=== PATIENT | female | born 1965 | race Caucasian/White ===

== ENCOUNTER 2024-08-29 08:49 | Outpatient (CLI) | payer BC, SELFPAY ==
--- NOTE | 2024-08-29 08:54 | MM_ITS ---
WS: [id number] VIEWS: MLO and CC views both breasts. 3D digital tomosynthesis is also included in this exam. Comparison made with prior exam of 10/27/2007, 10/10/2009, 11/09/2010, 04/07/2012, 06/18/2013, 08/16/2014, 09/03/2015, 09/06/2016,. Findings: There are scattered areas of fibroglandular density. No suspicious mass, tumor calcification or architectural distortion. Stable appearing nodular density seen in the upper outer quadrant of the LEFT breast. MM/MM scr BI tomosynthesis [id number] Impression: BI-RADS: 2 - Benign FOLLOW-UP: 1 Year Follow-up This mammogram was also analyzed by the Computer Aided Detection System R2 Imag e Loan Underwriter.
== END 2024-08-29 08:50 | disposition home or self-care (01) ==
LOC: RAD 08:50
PROVIDERS: Family Provider Family Medicine; PCP Family Medicine; Visit Provider Family Medicine
DX: Z12.31 Encounter for screening mammogram for malignant neoplasm of breast (principal); R92.323 Mammographic fibroglandular density, bilateral breasts; N63.21 Unspecified lump in the left breast, upper outer quadrant
CPT/HCPCS: 77063; 77067

== ENCOUNTER 2024-09-12 08:42 | Outpatient (CLI) | payer BC, SELFPAY ==
--- NOTE | 2024-09-12 08:47 | US_ITS ---
WS: [id number] US pelv w/transvag [id number] HISTORY: WELL WOMAN EXAM COMPARISON: None available. Uterus: 7.6 cm x 3.9 cm x 3.2 cm. Poorly visualized uterus due to body habitus and position of the uterus. Endometrium: 1.1 cm. Globular thickened endometrium. Endometrium is abnormal for postmenopausal patie nt with bleeding. Neither ovary is identified. Adnexa are poorly visualized. No free fluid. US/US pelv w/transvag [id number] IMPRESSION: 1. Technically difficult evaluation of the uterus and endometrium. 2. Thickened globular endometrium at 1.1 cm. Abnormal endometrium for a postme nopausal patient with bleeding. Recommend evaluation by AVIATION SURVIVAL TECHNICIAN for biopsy. 3. Neither ovary identified.
== END 2024-09-12 08:43 | disposition home or self-care (01) ==
PROVIDERS: Family Provider Family Medicine; PCP Family Medicine; Visit Provider Family Medicine
DX: Z01.419 Encounter for gynecological examination (general) (routine) without abnormal findings (principal); N85.00 Endometrial hyperplasia, unspecified
CPT/HCPCS: 76830; 76856

== ENCOUNTER 2024-12-17 10:30 | Day surgery (SDC) | payer BC, SELFPAY ==
[2024-12-10 10:20] LABS: Basophils % 0.4 %; Eosinophils # 0.2 10^3/uL (0.0-0.8); Eosinophils % 2.4 %; Hematocrit 42.4 % (36-47); Lymphocytes % 25.7 %; Mean Corpuscular HGB Conc 31.1 g/dL (30-55); Mean Corpuscular Volume 83.6 fl (85-98); Mean Platelet Volume 10.1 fL (7.4-10.4); Monocytes # 0.6 10^3/uL (0.2-0.9); Monocytes % 7.9 %; Neutrophils # 4.98 10^3/uL (1.8-7.7); Neutrophils % 63.1 %; Nucleated Red Blood Cells % 0 %; Platelet Count 326 10^3/cmm (157-399); Red Blood Count 5.07 10^6/uL (3.85-5.65); Red Cell Distribution Width 13.2 % (12.1-15.1); White Blood Count 7.89 10^3/uL (3.29-11.43)
--- NOTE | 2024-12-10 10:21 | ANES.PREANE2 ---
Pre-Anesthetic Assessment Height/Weight: Height 1.68 m Operation Date: 12/17/24 12:10 Proposed Procedures p Hysteroscopy w/ Myosure 68005, 75026, N95.0(Not Applicable) - Anthony Parmar MD s Dilation And Curettage (D&C)(Not Applicable) - Anthony Parmar MD Familial anesthetic complications: None Was Beta Katlin taken within 24 hours: N/A Was Clonidine taken within 24 hours: N/A Social No alcohol and No tobacco Exam alert, oriented x 3, clear to auscultation bilaterally and regular rate & rhythm Airway Mallampati: Class IV Dentition: other (missing) CV/HEM Hypertension Metabolic Diabetes Mellitus (hx gestational DM) and Morbid Obesity Anesthetic Plan ASA status: 3 Anesthesia: General Risk of > 500 ml blood loss (7ml/kg in children): No Medications/Allergies Home Medications Medication Instructions Recorded Confirmed Last Taken Type losartan 25 mg tablet 25 mg PO DAILY 09/10/24 12/10/24 12/10/24 History Allergies Allergy/AdvReac Type Severity Reaction Status Date / Time No Known Allergies Allergy Verified 12/10/24 07:39 [facility] Anesthesia Family History Mother Breast cancer Grandfather Hypertension Hyperlipidemia Grandfather Stroke Grandmother Hypertension Diabetes Hyperlipidemia Social History Smoking and tobacco/nicotine status: never used tobacco/nicotine Data Anesthesia 12/10/24 10:08 12/10/24 10:08 Short CBC 12/10/24 Range/Units 10:08 WBC 7.89 (3.29-11.43) 10^3/uL Hgb 13.20 (11.27-16.99) g/dL Hct 42.4 (36-47) % MCV 83.6 L (85-98) fl Plt Count 326 (157-399) 10^3/cmm Neut % (Auto) 63.1 % Neut # (Auto) 4.98 (1.8-7.7) 10^3/uL Cardiac Studies: No Data to Display
[2024-12-10 10:23] LABS: Bilirubin Urine Negative (Negative); Blood Urine 1+ (Negative); Glucose Urine UA Negative (Normal); Ketones Urine Negative (Negative); Leukocyte Esterase Urine Negative (Negative); Nitrate Urine Negative (Negative); Protein Urine Negative (Negative); Urine Appearance Clear (CLEAR); Urine Color Yellow (Yellow); Urobilinogen Urine 0.2 mg/dL (Negative); pH Urine 5.5 (5-7)
[2024-12-10 10:26] LABS: Add Urine Microscopic? YES; Bacteria Urine Trace /hpf; Hyaline Casts Urine 3.71 /lpf; WBC Urine 0-5 /hpf (0-5)
[2024-12-10 10:36] LABS: Alanine Aminotransferase 6 U/L (0-33); Albumin Level 3.5 g/dL (3.5-5.2); Alkaline Phosphatase 80 U/L (35-105); Anion Gap 13.8 (5-19); Aspartate Amino Transferase 12 U/L (0-32); Blood Urea Nitrogen 11 mg/dL (8-23); Calcium 8.4 mg/dL (8.5-10.5); Carbon Dioxide 27 mmol/L (22-29); Chloride 102 mmol/L (98-107); Globulin 2.9 g/dL (1.3-4.6); Glomerular Filtration Rate 85.1 mL/min (90-130); Glucose 96 mg/dL (65-115); Osmolality Calculated 287 mOsm/kg (285-295); Potassium 3.8 mmol/L (3.5-5.1); Sodium 139 mmol/L (136-145); Total Bilirubin 0.3 mg/dL (0.15-1.2); Total Protein 6.4 g/dL (6.6-8.7)
[2024-12-17] VITALS (11 sets, daily range): BP systolic 130–189; BP diastolic 81–99; PULSE 69–91; RESP 12–20; TEMP 36.1–36.6; O2SAT 96–100; BMI 51.6
[2024-12-17] MEDS: sodium chloride 0.9% 1,000 ML 30 ML IV (11:00)
--- NOTE | 2024-12-17 12:27 | P.ANESUD_ITS ---
Pre-Anesthetic Update Pre-Anesthetic Assessment: Date of Surgery/Procedure: 12/17/24 Preop Courtney gnosis: postmenopausal bleeding Proposed Procedure: Operation Date: 12/17/24 12:00 Proposed Procedures p Hysteroscopy w/ Myosure 64931, 63542, N95.0(Not Applicable) - Anthony Parmar MD s Dilation And Curettage (D&C)(Not Applicable) - Anthony Parmar MD Changes from Pre-Anesthetic Assessment: No changes in today's since patient was seen in preanesthetic visit last week. Plan for general anesthesia. NPO since yesterday. ASA 3 Last Intake: Intake Last Liquid Date 12/16/24 Last Liquid Time 21:00 Last Solid Date 12/16/24 Last Solid Time 21:00 Vitals: Temperature 97 F L 12/17/24 10:42 Temperature Source Temporal Artery S can 12/17/24 10:42 Pulse Rate 79 12/17/24 11:37 Respiratory Rate 20 H 12/17/24 11:37 Blood Pressure 189/96 12/17/24 11:37 Blood Pressure Hannah n 127 12/17/24 11:37 Pulse Oximetry 96 12/17/24 11:37 Oxygen Delivery Me thod Room Air 12/17/24 11:37 Cardiac Studies: No Data to Display
--- NOTE | 2024-12-17 12:45 | W.PM.OPSUD ---
Surgery/Procedure H&P Update DATE OF PROCEDURE: December 17, 2024 DATE H&P PERFORMED: 12/10/24 H&P UPDATE INFORMATION: I have reviewed H&P completed within last 30 days, I have examined patient prior to procedure and No changes to prior documentation PREOP DIAGNOSIS: postmenopausal bleeding PLANNED PROCEDURE: Operation Date: 12/17/24 12:00 Proposed Procedures p Hysteroscopy w/ Myosure 25781, 78779, N95.0(Not Applicable) - Anthony Parmar MD s Dilation And Curettage (D&C)(Not Applicable) - Anthony Parmar MD
[2024-12-17] MEDS: ceFAZolin 3,000 MG in sodium chloride 0.9% (100 ml) 100 ML 200 MG IV (12:57)
[2024-12-17] MEDS: lidocaine-epi 2% PF 1:200,000 20 mL SDV XX (13:40)
--- NOTE | 2024-12-17 14:31 | ANE.PACU2 ---
Inpatient post-anesthesia follow up: Airway intact: Yes Vital signs: Temperature 97.6 F Pulse Rate 75 Respiratory Rate 18 Blood Pressure 171/81 Pulse Oximetry 99 Oxygen Delivery Me thod Room Air Oxygen Flow Rate Fraction of Inspir ed Oxygen Hydration adequate: Yes Nausea and vomiting: No Pain level: 1 Mental status: Baseline
--- NOTE | 2024-12-17 14:39 | PM.OP ---
Operative Report Date of procedure: December 17, 2024 Pre-op diagnosis: Postmenopausal bleeding Post-op diagnosis: same Procedure done: Hysteroscopy endometrial polypectomy via MyoSure Specimens removed/disposition: Endometrial polyp Surgeon: Anthony Parmar MD Estimated blood loss (mL): 5 IV fluids (mL): 700 Complications: None Procedure: After informed consent, the risks included but were not limited to bleeding, infection, injury to internal organs. The patient was counseled on a possible laparotomy and on the potential need for hysterectomy. The patient expressed understanding of the risks involved, all questions were answered, and the patient consented to the procedure. The patient was taken to the operating room where general anesthesia was administered. She was placed in the dorsal lithotomy position and prepped and draped in sterile fashion. A time out procedure was performed. The patient was examined under anesthesia and found to have a normal uterus with normal adnexa. A sterile weight speculum was placed in the vagina. The uterus was then gently sounded to 9 cm, and the cervix was dilated. The 0 degrees MyoSure hysteroscope was advanced gently to the uterine fundus while visualizing the monitor. Survey of the uterine cavity showed: Pedicle of the pedunculated myoma on the right lateral wall, the fundus shows normal atrophic endometrium; left ostium was visualized, and lateral wall with atrophic endometrium; right ostium visualized, and lateral wall with atrophic endometrium; anterior and posterior lin are with atrophic endometrium; endocervical canal is normal. The MyoSure device was advanced and the direct visualization the polyp was morcellated without complication. At the end of morcellation the fluid deficit was 465 mL and was estimated at approximately 400 mL were on the floor. There was minimal bleeding noted and the tenaculum removed with goad hemostasis noted. The patient tolerated the procedure well. The patient was taken to the recovery area in stable condition.
--- NOTE | 2024-12-17 14:46 | P.DS_ITS ---
Discharge Providers FOOD SAMPLER Date of Discharge: 12/17/24 Attending Provider at Discharge: Anthony Parmar MD Primary Care Provider: Malathi Graff MD Hospital Course Hospital Course Mrs. Bolden is a 62-year-old female with history of postmenopausal bleeding and endometrial polyp on ultrasound. Admitted for hysteroscopy and dilation with curettage via MyoSure. During hysteroscopy distinct polyp was noted and endometrial polypectomy was performed with the MyoSure device without complications. She was counseled regarding pelvic rest for 6 weeks (no sex, no tampons, no vaginal douches). Return to the emergency room if any fever, increased bleeding or pain. And instructed to follow-up in 2 weeks Physical Exam Narrative: GA: Alert and oriented ?3. HEENT: WNL. Heart: Regular rate and rhythm. Lungs: Clear to auscultation bilaterally. Abdomen: Bowel sounds present, nontender. PLASTERER SPRAY GUN: spotting bleeding. Extremities: No edema, no cyanosis, no calves pain. Discharge Data Studies Completed and Pending Pending at discharge Category Date Time Status Type and Screen Routine Lab 12/10/24 09:42 Uncollected Pathology: Surgical [PTH] Routine Pth 12/17/24 14:05 Ordered Laboratory Results WBC 7.89 10^3/uL (3.29-11.43) 12/10/24 10:08 RBC 5.07 10^6/uL (3.85-5.65) 12/10/24 10:08 Hgb 13.20 g/dL (11.27-16.99) 12/10/24 10:08 Hct 42.4 % (36-47) 12/10/24 10:08 MCV 83.6 fl (85-98) L 12/10/24 10:08 MCH 26.0 pg (27-33) L 12/10/24 10:08 MCHC 31.1 g/dL (30-55) 12/10/24 10:08 RDW 13.2 % (12.1-15.1) 12/10/24 10:08 Plt Count 326 10^3/cmm (157-399) 12/10/24 10:08 MPV 10.1 fL (7.4-10.4) 12/10/24 10:08 Neut % (Auto) 63.1 % 12/10/24 10:08 Lymph % (Auto) 25.7 % 12/10/24 10:08 [place] % (Auto) 7.9 % 12/10/24 10:08 Eos % (Auto) 2.4 % 12/10/24 10:08 Baso % (Auto) 0.4 % 12/10/24 10:08 Neut # (Auto) 4.98 10^3/uL (1.8-7.7) 12/10/24 10:08 Lymph # (Auto) 2.0 10^3/uL (0.8-4.8) 12/10/24 10:08 [place] # (Auto) 0.6 10^3/uL (0.2-0.9) 12/10/24 10:08 Eos # (Auto) 0.2 10^3/uL (0.0-0.8) 12/10/24 10:08 Baso # (Auto) 0.0 10^3/uL (0.0-0.1) 12/10/24 10:08 Nucleated RBC % (auto) 0 % 12/10/24 10:08 Nucleated RBCs # 0.0 /100WBC 12/10/24 10:08 Sodium 139 mmol/L (136-145) 12/10/24 10:08 Potassium 3.8 mmol/L (3.5-5.1) 12/10/24 10:08 Chloride 102 mmol/L (98-107) 12/10/24 10:08 Carbon Dioxide 27 mmol/L (22-29) 12/10/24 10:08 Anion Gap 13.8 (5-19) 12/10/24 10:08 BUN 11 mg/dL (8-23) 12/10/24 10:08 Creatinine 0.7 mg/dL (0.5-0.9) 12/10/24 10:08 GFR Calculation 85.1 mL/min (90-130) L 12/10/24 10:08 Glucose 96 mg/dL (65-115) 12/10/24 10:08 Calculated Osmolality 287 mOsm/kg (285-295) 12/10/24 10:08 Calcium 8.4 mg/dL (8.5-10.5) L 12/10/24 10:08 Total Bilirubin 0.3 mg/dL (0.15-1.2) 12/10/24 10:08 AST 12 U/L (0-32) 12/10/24 10:08 ALT 6 U/L (0-33) 12/10/24 10:08 Alkaline Phosphatase 80 U/L (35-105) 12/10/24 10:08 Total Protein 6.4 g/dL (6.6-8.7) L 12/10/24 10:08 Albumin 3.5 g/dL (3.5-5.2) 12/10/24 10:08 Globulin 2.9 g/dL (1.3-4.6) 12/10/24 10:08 Urine Color Yellow (Yellow) 12/10/24 10:11 Urine Appearance Clear (CLEAR) 12/10/24 10:11 Urine pH 5.5 (5-7) 12/10/24 10:11 Ur Specific [place] 1.020 (1.005-1.030) 12/10/24 10:11 Urine Protein Negative (Negative) 12/10/24 10:11 Urine Glucose (UA) Negative (Normal) 12/10/24 10:11 Urine Ketones Negative (Negative) 12/10/24 10:11 Urine Blood 1+ (Negative) A 12/10/24 10:11 Urine Nitrate Negative (Negative) 12/10/24 10:11 Urine Bilirubin Negative (Negative) 12/10/24 10:11 Urine Urobilinogen 0.2 mg/dL (Negative) 12/10/24 10:11 Ur Leukocyte Esterase Negative (Negative) 12/10/24 10:11 Urine RBC 6-10 /hpf (0-2) 12/10/24 10:11 Urine WBC 0-5 /hpf (0-5) 12/10/24 10:11 Ur Squamous Epith Cells 6-10 /hpf (0-5) 12/10/24 10:11 Amorphous Sediment Not Reportable 12/10/24 10:11 Urine Bacteria Trace /hpf (NONE) 12/10/24 10:11 Hyaline Casts 3.71 /lpf 12/10/24 10:11 Vitals Last Vital Signs Temp 97.6 F 12/17/24 14:31 Pulse 75 12/17/24 14:31 Resp 18 12/17/24 14:31 BP 171/81 12/17/24 14:31 Pulse Ox 99 12/17/24 14:31 O2 Del Method Room Air 12/17/24 14:31 Results Labs OB ([facility]): Hct 42.4 % (36-47) 12/10/24 Hgb 13.20 g/dL (11.27-16.99) 12/10/24 Plt Count 326 10^3/cmm (157-399) 12/10/24 Discharge Plan Discharge Patient Disposition: Home Condition: Stable Prescriptions: New acetaminophen 325 mg capsule 325 mg PO Q4H PRN (Reason: Postoperative fever or pain) Qty: 60 0RF ibuprofen 800 mg tablet 800 mg PO TID PRN (Reason: pain) Qty: 60 0RF Continued losartan 25 mg tablet 25 mg PO DAILY Discharge Orders: Discharge Order (Routine); Ordered 12/17/24 Ordered By: Anthony Parmar Discharge Diet: Usual diet Discharge Activity: Limit activity as instructed Patient Instructions: Acute Wound Care (DC), Post Anesthesia Care, OB Hysteroscopy - [facility], Uterine Tissue Removal (GEN) Activity Restrictions/Additional Instructions: 1. Please call [facility] on next working day to make your post-operative appointment in 2 weeks. 2. Please stay home until you come back to the clinic on first post- hospatilization check up. 3. Please follow instructions on your medications CAREFULLY. 4. If you have abdominal incision, do not cover it unless dressing is necessary because of drainage. OK to shower, but avoid bath. Leave steri-strips until they fall off. If they are still on one week after surgery, you may remove them. 5. If you had vaginal surgery or vaginal repair, Dr. Parmar may instruct you to take SITZ bath. 6. Yellow, blood tinged odorous vaginal discharge is usually normal after hysterectomy or vaginal surgeries. 7. No SEXUAL INTERCOURSE, tampons, or douches until you are completely released from the post-operative care. 8. Avoid constipation by eating right and maybe using some Metamucil or Milk of Magnesia. 9. All prescription refills are given during the working hours. Please do no wait till it runs out. Call the clinic at [phone] before your medication runs out. The clinic will get in touch with your doctor to prescribe medications if necessary. 10. Please remain within 40 mile radius from our hospital because emergencies do happen now and then during the post-operative period. 11. If you have stairs at home, take one step at a time slowly and minimize the number of trips. It helps to stay in one floor for the next few days. No lifting except what you can lift by one hand until you are released from the post-operative care. 12. Driving is discouraged until you are well healed. It may be 3-4 weeks before you feel strong enough to drive. You should be able to turn and look through the rear window without pain and you should be able to push the brake pedal very hard without pain before you drive. No fast rules, but SAFETY should be your primary concern. DO NOT drive if you are on sedating medications such as narcotics. 13. Call the clinic (during working hours) to make urgent appointment or go to the Emergency room, if any of the following occurs: i. Vaginal bleeding becomes heavy, more than a period. ii. Incision becomes red and sore, or drains pus. iii. Your TEMPERATURE is over 100.4F or you have chill. iv. IV site becomes red and swollen (a little ``knot?? is usually OK) v. Persistent nausea and vomiting vi. Persistent constipation or diarrhea vii. Rash or allergic reaction to medications. Print Language: Italian Discharge Attestations FOOD SAMPLER Time Spent in Discharge Care*: greater than 30 min Coding Level of Care Code Acute Code for Chg Fwd
== END 2024-12-17 15:18 | disposition home or self-care (01) ==
PROVIDERS: PCP Family Medicine; Visit Provider Obstetrics & Gynecology
PROC: 0UDB8ZZ Extraction of Endometrium, Via Natural or Artificial Opening Endoscopic (ICD-10-PCS; CPT 58558; principal; 2024-12-17 12:00)
DX: N84.0 Polyp of corpus uteri (principal); N95.0 Postmenopausal bleeding; E11.9 Type 2 diabetes mellitus without complications; E66.01 Morbid (severe) obesity due to excess calories; I10 Essential (primary) hypertension; Z68.43 Body mass index [BMI] 50.0-59.9, adult; K08.409 Partial loss of teeth, unspecified cause, unspecified class
CPT/HCPCS: 58558; 36415; 80053; 81001; 85025; 88305; J0330; J0690; J1100; J1885; J2371; J2405; J2704; J3010; J7030

== ENCOUNTER 2024-12-31 11:50 | Outpatient (CLI) | payer BC, SELFPAY ==
--- NOTE | 2024-12-31 12:06 | XRR_ITS ---
PROCEDURE INFORMATION: Exam: XR Left Foot Exam date and time: 12/31/2024 12:12 PM Age: 59 years old Clinical indication: Left; Pop in foot, pain on lateral aspect of foot 2 days ago; Additional info: Pain in left foot TECHNIQUE: Imaging protocol: Radiologic exam of the left foot. Views: 3 or more views. COMPARISON: No relevant prior studies available. FINDINGS: Bones/joints: There is a fracture involving the 5th metatarsal base. No joint dislocation. Mild calcaneal bony spurring is seen. Soft tissues: There is soft tissue swelling seen. XR/XR foot LT min 3V* [id number] IMPRESSION: 1. There is a fracture involving the 5th metatarsal base. 2. There is soft tissue swelling. 3. Mild calcaneal bony spurring.
== END 2024-12-31 11:51 | disposition home or self-care (01) ==
PROVIDERS: PCP Family Medicine; Visit Provider Nurse Practitioner Family
DX: M79.672 Pain in left foot (principal); B02.9 Zoster without complications; S92.352A Displaced fracture of fifth metatarsal bone, left foot, initial encounter for closed fracture; X58.XXXA Exposure to other specified factors, initial encounter; R93.6 Abnormal findings on diagnostic imaging of limbs; M77.32 Calcaneal spur, left foot
CPT/HCPCS: 73630

== ENCOUNTER 2025-01-01 13:46 | Outpatient (CLI) | payer BC, SELFPAY | END 2025-01-01 13:47 | disposition home or self-care (01) | LOC: SPT 13:47 | PROVIDERS: PCP Family Medicine; Visit Provider Podiatrist Foot & Ankle Surgery | DX: Z46.89 Encounter for fitting and adjustment of other specified devices (principal); S92.902D Unspecified fracture of left foot, subsequent encounter for fracture with routine healing; X58.XXXD Exposure to other specified factors, subsequent encounter | CPT/HCPCS: 97760; L4361 ==

== ENCOUNTER → 2025-01-29 15:15 | Outpatient (BNVA) | payer BC, SELFPAY | PROVIDERS: PCP Family Medicine; Visit Provider Podiatrist Foot & Ankle Surgery | DX: S92.355D Nondisplaced fracture of fifth metatarsal bone, left foot, subsequent encounter for fracture with routine healing (principal); X58.XXXD Exposure to other specified factors, subsequent encounter | CPT/HCPCS: 73630 ==

== ENCOUNTER → 2025-02-14 08:46 | Outpatient (BNVA) | payer BC, SELFPAY | PROVIDERS: PCP Family Medicine; Visit Provider Podiatrist Foot & Ankle Surgery | DX: S92.355D Nondisplaced fracture of fifth metatarsal bone, left foot, subsequent encounter for fracture with routine healing (principal); X58.XXXD Exposure to other specified factors, subsequent encounter | CPT/HCPCS: 73630 ==

== ENCOUNTER → 2025-02-28 08:46 | Outpatient (BNVA) | payer BC, SELFPAY | PROVIDERS: PCP Family Medicine; Visit Provider Podiatrist Foot & Ankle Surgery | DX: S92.355D Nondisplaced fracture of fifth metatarsal bone, left foot, subsequent encounter for fracture with routine healing (principal); X58.XXXD Exposure to other specified factors, subsequent encounter | CPT/HCPCS: 73630 ==